=== PATIENT | male | born 1940 | race Caucasian/White ===

== ENCOUNTER 2017-03-03 08:58 | Emergency (ER) | payer MEDICARE ==
[~2017-03-03] VITALS: Ht 170.2 cm; Wt 70.0 kg
[~2017-03-03 08:58] MED LIST: BISOPRL/HCT1 PO; BP PILL; LISINOPRIL20 M1 PO; PRILOSEC40 MG PO
[2017-03-03] MEDS ORDERED: ULTRAM50 M1 PO (09:30)
[2017-03-03 09:50] VITALS: BP 180/93
== END 2017-03-03 09:50 | disposition home or self-care (01) ==
LOC: ED 08:58
DX: S83.92XA Sprain of unspecified site of left knee, initial encounter (principal); I10 Essential (primary) hypertension; X50.0XXA Overexertion from strenuous movement or load, initial encounter; Y92.009 Unspecified place in unspecified non-institutional (private) residence as the place of occurrence of the external cause

== ENCOUNTER 2020-11-29 13:34 | Emergency (ER) | payer MEDICARE ==
[~2020-11-29 13:34] MED LIST changes: +ULTRAM50 M1 PO
== END 2020-11-29 14:06 | disposition left against medical advice (07) ==
LOC: ED 13:34 → LWOBS 14:06
DX: Z53.21 Procedure and treatment not carried out due to patient leaving prior to being seen by health care provider (principal)

== ENCOUNTER 2022-06-01 18:40 | Emergency (ER) | payer MEDICARE ==
[~2022-06-01] VITALS: Ht 170.2 cm; Wt 68.2 kg
[2022-06-01 19:14] VITALS: BP 214/89
[2022-06-01 19:31] VITALS: BP 207/90
[2022-06-01 20:00] LABS: BASO% 0.5 % (0-3); EOS% 1.3 % (0-8); HEMATOCRIT 39.5 % (39.0-50.0); HEMOGLOBIN 12.4 g/dl (14.0-18.0); IMMATURE GRANULOCYTES 0.1 % (0.0-5.0); LYMPH% 14.8 % (15-41); MEAN CELL VOLUME 84.6 fL CALC (80.0-100.0); MEAN CORPUSCULAR HGB 26.6 pG CALC (26.0-32.0); MEAN CORPUSCULAR HGB CONC 31.4 g/dL CAL (32.0-36.0); MONO% 5.2 % (2-13); NEUT# 5.86 thou/uL (1.82-7.42); NEUT% 78.1 % (42-76); RED BLOOD COUNT 4.67 mill/uL (4.70-6.10); RED CELL DISTRI WIDTH 14.6 % (11.5-15.5)
[2022-06-01 20:15] LABS: ALBUMIN 4.4 g/dL (3.2-5.0); ALKALINE PHOSPHATASE 79 u/l (38-126); ANION GAP 10 (6-22 (CALC)); BUN 15 mg/dL (8-23); BUN/CREATININE RATIO 14 (12-20 (CALC)); CARBON DIOXIDE 27 mmol/l (22-30); CHLORIDE 106 mmol/l (95-108); CREATININE 1.1 mg/dL (0.7-1.3); GFR FOR AFR.AMER. > 60 ML/MIN (>=60 (CALC)); GFR OTHER RACES > 60 ML/MIN (>=60 (CALC)); LIPASE 22 u/l (23-300); POTASSIUM 3.9 mmol/l (3.5-5.1); SGOT/AST 30 u/l (19-48); SODIUM 140 mmol/l (137-146); TOTAL PROTEIN 7.3 g/dL (6.3-8.2)
[2022-06-01 20:20] LABS: BILIRUBIN, TOTAL 0.4 mg/dL (0.2-1.3)
[2022-06-01 20:56] LABS: URINE BILIRUBIN - DIPSTICK NEGATIVE (NEGATIVE); URINE BLOOD DIPSTICK SMALL (NEGATIVE); URINE COLOR YELLOW; URINE GLUCOSE - DIPSTICK NEGATIVE (NEGATIVE); URINE KETONE TRACE mg/dL (NEGATIVE); URINE LEUK ESTERASE NEGATIVE (NEGATIVE); URINE PROTEIN - DIPSTICK TRACE mg/dL (NEG-TRACE); URINE SPECIFIC GRAVITY 1.025; URINE UROBILINOGEN - DIPSTICK 0.2 E.U./dL (0.2)
[2022-06-01 21:02] LABS: URINE NITRITE - DIPSTICK NEGATIVE (Negative)
[2022-06-01 21:09] LABS: URINE WBC 0-2 WBC/hpf (0-5)
[2022-06-01] MEDS ORDERED: TRAMADOL HCL50 MG PO (22:43)
[2022-06-01 22:47] VITALS: BP 207/90
== END 2022-06-01 22:59 | disposition home or self-care (01) ==
LOC: ED 18:40
PROVIDERS: Family Medicine
DX: K81.9 Cholecystitis, unspecified (principal); I10 Essential (primary) hypertension; F03.90 Unspecified dementia, unspecified severity, without behavioral disturbance, psychotic disturbance, mood disturbance, and anxiety
CPT/HCPCS: Q9967; S0164